=== PATIENT | male | born 1975 | race Caucasian/White ===

== ENCOUNTER 2016-11-24 21:07 | Emergency (ER) | payer MEDICARE, MEDICAID ==
[2016-11-24 21:27] VITALS: BP 0/0
--- OUTSIDE RECORDS SUMMARY | 2016-11-26 17:34 | XMS REPORT ---
Author Author MEERA CARRILLO [facility] eClinicalWorks Address Unknown Phone Unavailable Care Team Providers Care Travel Physical Therapist Name Role Phone MEERA CARRILLO CP Unavailable Allergies No Known Allergies Problems Problem Type Condition Code Onset Dates Condition Status Assessment Dental examination Z01.20 Active Problem Encounter for dental examination Z01.20 Active Medications No Known Medications Procedures Procedure Coding System Code Date Dental no charge CPT-4 D0099 September 27, 2015 Results No Known Results Summary Purpose eClinicalWorks Submission
--- OUTSIDE RECORDS SUMMARY | 2016-11-26 17:34 | XMS REPORT | Continuity of Care Document ---
Author Author [facility] Organization [facility] Address Unknown Phone Unavailable Allergies Medications Problems Date Dx Coded Attending Type Code Diagnosis Diagnosed By 11/12/2014 FLACO ALONZO DO Ot 603.9 12/16/2014 FLACO ALONZO DO Ot 603.9 12/16/2014 FLACO ALONZO DO Ot 603.9 01/04/2015 FLACO ALONZO DO Ot 603.9 10/29/2015 ELAINA GOMEZ MD Ot N23 UNSPECIFIED RENAL COLIC 10/30/2015 ELAINA GOMEZ MD Ot N23 UNSPECIFIED RENAL COLIC Procedures Results Encounters ACCT No. Visit Date/Time Discharge Status Pt. Type Provider Facility Loc./Unit Complaint [id number] 10/29/2015 17:24:00 2015 18:46:00 DIS Emergency ELAINA GOMEZ MD [facility] ER [id number] 10/14/2014 09:18:00 2014 23:59:59 CLS Outpatient FLACO ALONZO DO [facility] RAD
--- OUTSIDE RECORDS SUMMARY | 2016-11-26 17:34 | XMS REPORT ---
Author Author MELIA SIERRA Organization [employer] Address Unknown Phone Unavailable Care Team Providers Care Highway Design Engineer Name Role Phone MELIA SIERRA CP Unavailable Allergies, Adverse Reactions, Alerts Substance Reaction Event Type Penicillin V Potassium Info Not Available Drug Allergy Problems Problem Type Condition Code Onset Dates Condition Status Assessment Encounter for dental examination and cleaning with abnormal findings Z01.21 Active Problem Encounter for dental examination Z01.20 Active Medications No Known Medications Procedures Procedure Coding System Code Date TOPICAL FLUORIDE VARNISH CPT-4 D1206 September 27, 2015 PROPHYLAXIS - ADULT CPT-4 D1110 September 27, 2015 Results No Known Results Summary Purpose eClinicalWorks Submission
--- OUTSIDE RECORDS SUMMARY | 2016-11-26 17:34 | XMS REPORT ---
Author Author BRET CAVAZOS [employer] Address Unknown Phone Unavailable Care Team Providers Care Boat Pilot Name Role Phone BRET CAVAZOS CP Unavailable Allergies, Adverse Reactions, Alerts Substance Reaction Event Type Penicillin V Potassium Info Not Available Drug Allergy Problems Problem Type Condition Code Onset Dates Condition Status Assessment Encounter for dental examination Z01.20 Active Problem Encounter for dental examination Z01.20 Active Medications Medication Code System Code Instructions Start Date End Date Status Dosage Zetia [facility] [address]-47 10 MG Orally Once a day 1 tablet Loratadine [facility] [address]-85 10 MG Orally Once a day 1 tablet Vitamin E [facility] [address]-12 1000 UNIT Orally Once a day 1 capsule ProAir HFA [facility] [address]-00 108 (90 Base) MCG/ACT Inhalation every 4 hrs 2 puffs as needed Furosemide [facility] [address]-41 40 MG Orally Once a day 1 tablet Potassium Chloride ER [facility] [address]-61 20 MEQ Orally Twice a day 1 tablet with food Nasonex [facility] [address]-82 50 MCG/ACT Nasally Once a day 2 sprays in each nostril Patanol [facility] [address]-95 0.1 % Ophthalmic Twice a day 1 drop into affected eye Vitamin C [facility] [address]01 500 MG Orally not defined Zafirlukast [facility] [address]-74 20 MG Orally Twice a day 1 tablet Digoxin [facility] [address]-12 125 MCG Orally Once a day 1 tablet Procedures Procedure Coding System Code Date PROPHYLAXIS - ADULT CPT-4 D1110 Jun 10, 2015 TOPICAL FLUORIDE VARNISH CPT-4 D1206 Jun 10, 2015 BITEWINGS - FOUR FILMS CPT-4 D0274 Jun 10, 2015 Vital Signs Date/Time: Jun 10, 2015 Blood Pressure Diastolic 73 mmHg Blood Pressure Systolic 122 mmHg Cardiac Monitoring Heart Rate 79 bpm Results No Known Results Summary Purpose eClinicalWorks Submission
--- OUTSIDE RECORDS SUMMARY | 2016-11-26 17:34 | XMS REPORT ---
Author Author BRET CAVAZOS [employer] Address Unknown Phone Unavailable Care Team Providers Care Lasting Room Machine Operator Name Role Phone BRET CAVAZOS CP Unavailable Allergies, Adverse Reactions, Alerts Substance Reaction Event Type Penicillin V Potassium Info Not Available Drug Allergy Problems Problem Type Condition Code Onset Dates Condition Status Assessment Encounter for dental examination Z01.20 Active Problem Encounter for dental examination Z01.20 Active Medications Medication Code System Code Instructions Start Date End Date Status Dosage Nasonex [facility] [place] [address]-62 50 MCG/ACT Nasally Once a day 2 sprays in each nostril Vitamin E [facility] [place] [facility]] [address]-72 1000 UNIT Orally Once a day 1 capsule Zetia [facility] [place]] [address]-18 10 MG Orally Once a day 1 tablet Flovent HFA [facility] [place] [facility] [address]-42 110 MCG/ACT Inhalation Twice a day 1 puff Loratadine [facility] [place] 2[place] [address]-08 10 MG Orally Once a day 1 tablet Vitamin C [facility] [place] 2] [address]65 500 MG Orally not defined Digoxin [facility] [place] 2] [address]-35 125 MCG Orally Once a day 1 tablet Furosemide [facility] [place] 2] [address]-11 40 MG Orally Once a day 1 tablet Zafirlukast [facility] [place] 2] [address]-95 20 MG Orally Twice a day 1 tablet Promethazine-Codeine [facility] [place] 2] [address]-44 6.25-10 MG/5ML Orally every 6 hrs 5 ml as needed Benzonatate [facility] [place]] [address]-31 200 MG Orally Three times a day 1 capsule as needed Potassium Chloride ER [facility] [place] 2] [address]-39 20 MEQ Orally Twice a day 1 tablet with food Patanol [facility] [place] 2] [address]-02 0.1 % Ophthalmic Twice a day 1 drop into affected eye ProAir HFA [facility] [place] 2[facility] [address]-41 108 (90 Base) MCG/ACT Inhalation every 4 hrs 2 puffs as needed Acetaminophen [facility] [place] 2] [address]-78 not defined Procedures Procedure Coding System Code Date PROPHYLAXIS - ADULT CPT-4 D1110 December 28, 2015 TOPICAL FLUORIDE VARNISH CPT-4 D1206 December 28, 2015 INTRAORL-PERIAPICAL 1 FILM 04989 CPT-4 D0220 December 28, 2015 Vital Signs Date/Time: December 28, 2015 Blood Pressure Diastolic 68 mmHg Blood Pressure Systolic 119 mmHg Cardiac Monitoring Heart Rate 81 bpm Results No Known Results Summary Purpose eClinicalWorks Submission
--- OUTSIDE RECORDS SUMMARY | 2016-11-26 17:34 | XMS REPORT ---
Author Author ADAMA GUARDADO [employer] Address Unknown Phone Unavailable Care Team Providers Care Knowledge Architect Name Role Phone ADAMA GUARDADO CP Unavailable Allergies, Adverse Reactions, Alerts Substance Reaction Event Type Penicillin V Potassium Info Not Available Drug Allergy Problems Problem Type Condition Code Onset Dates Condition Status Assessment Dental examination Z01.20 Active Problem Encounter for dental examination Z01.20 Active Medications Medication Code System Code Instructions Start Date End Date Status Dosage Loratadine [facility] [address]-40 10 MG Orally Once a day 1 tablet Acetaminophen [facility] [address]-14 not defined ProAir HFA [facility] [address]-18 108 (90 Base) MCG/ACT Inhalation every 4 hrs 2 puffs as needed Zafirlukast [facility] [address]-10 20 MG Orally Twice a day 1 tablet Potassium Chloride ER [facility] [address]-99 20 MEQ Orally Twice a day 1 tablet with food Vitamin C [facility] [address]35 500 MG Orally not defined Clindamycin HCl [facility] [address]-65 150 MG Orally Take 4 capsules at one time , one hour before next appointment Jun 28, 2015 Jun 28, 2015 4 capsules Patanol [facility] [address]-96 0.1 % Ophthalmic Twice a day 1 drop into affected eye Vitamin E [facility] [address]-83 1000 UNIT Orally Once a day 1 capsule [address]et[address] [facility] [address]-36 10 MG Orally Once a day 1 tablet Digoxin [facility] [address]-41 125 MCG Orally Once a day 1 tablet Furosemide [facility] [address]-04 40 MG Orally Once a day 1 tablet Nasonex [facility] [address]-14 50 MCG/ACT Nasally Once a day 2 sprays in each nostril Procedures Procedure Coding System Code Date COMP ORAL EVALUATION - NEW/EST PT CPT-4 D0150 Jun 28, 2015 Vital Signs Date/Time: Jun 28, 2015 Blood Pressure Diastolic 82 mmHg Blood Pressure Systolic 123 mmHg Results No Known Results Summary Purpose eClinicalWorks Submission
== END 2016-11-24 21:26 | disposition left against medical advice (07) ==
LOC: EDUNIT# 21:07 → ER 21:10
DX: S01.311A Laceration without foreign body of right ear, initial encounter (principal); W26.9XXA Contact with unspecified sharp object(s), initial encounter; Z53.21 Procedure and treatment not carried out due to patient leaving prior to being seen by health care provider
CPT/HCPCS: 99281

== ENCOUNTER → 2018-05-01 | Outpatient (CLI) | payer MEDICARE, MEDICAID ==
--- NOTE | 2018-05-01 13:32 | Diagnostic Imaging Report ---
PA and lateral chest at 11:09 The cardiomegaly noted on the prior exam of 10/13/2016 is again evident and no different. The perihilar markings are prominent bilaterally and similar to the previous study. There is no evidence for failure, pneumonia or for pleural effusion. Mediastinum is not widened. The osseous structures are intact. Impression: There is cardiomegaly but there is no evidence for an acute cardiopulmonary abnormality. Dictated by: Dictated on workstation # [id number]
== END ==
LOC: RAD 10:29
PROVIDERS: ATTEND Family Medicine
DX: I51.7 Cardiomegaly (principal); R06.02 Shortness of breath
CPT/HCPCS: 71046

== ENCOUNTER 2021-12-22 01:38 | Emergency (ER) | payer MEDICARE, MEDICAID ==
[~2021-12-22] VITALS: Ht 172 cm; Wt 95.0 kg
--- NOTE | 2021-12-22 01:50 | ED General ---
General Stated Complaint: COVID+ History of Present Illness Date Seen by Provider: Dec 22, 2021 Time Seen by Provider: 01:50 Initial Comments 46-year-old male with PMH of intellectual disability/HTN, is brought in by his accounting advisory services manager with complaints of chest congestion, nasal congestion, cough due to COVID. Patient was diagnosed with COVID 3 days ago. Patient is also started on doxycycline as per his paperwork from the facility. Denies chest pain, palpitations, abdominal pain, diarrhea, fever, chills. Allergies and Home Medications Allergies Coded Allergies: No Known Drug Allergies (Unverified , 12/22/21) Patient Home Medication List Home Medication List Reviewed: Yes Albuterol Sulfate (Proair Hfa) 90 Mcg Hfa.aer.ad, (Reported) Entered as Reported by: SUMMER RODRIGUEZ on 12/22/21154 Last Action: New Order Ascorbic Acid (Ascorbic Acid) 500 Mg Tablet, (Reported) Entered as Reported by: SUMMER RODRIGUEZ on 12/22/21154 Last Action: New Order Budesonide/Formoterol Fumarate (Symbicort 160-4.5 Mcg Inhaler) 160 Mcg-4.5 Mcg/Actuation Hfa.aer.ad, (Reported) Entered as Reported by: SUMMER RODRIGUEZ on 12/22/21154 Last Action: New Order Clindamycin HCl (Clindamycin HCl) 300 Mg Capsule, (Reported) Entered as Reported by: SUMMER RODRIGUEZ on 12/22/21154 Last Action: New Order Digoxin (Digoxin) 125 Mcg (0.125 Mg) Tablet, (Reported) Entered as Reported by: SUMMER RODRIGUEZ on 12/22/21154 Last Action: New Order Doxycycline Hyclate (Doxycycline Hyclate) 100 Mg Capsule, (Reported) Entered as Reported by: SUMMER RODRIGUEZ on 12/22/21154 Last Action: New Order Furosemide (Furosemide) 40 Mg Tablet, (Reported) Entered as Reported by: SUMMER RODRIGUEZ on 12/22/21154 Last Action: New Order Furosemide (Lasix) 40 Mg Tablet, (Reported) Entered as Reported by: SUMMER RODRIGUEZ on 12/22/21154 Last Action: New Order Guaifenesin/Dextromethorphan (Robitussin Cough-Chest Dm Liq) 100 Mg-5 Mg/5 Ml Liquid, (Reported) Entered as Reported by: SUMMER RODRIGUEZ on 12/22/21154 Last Action: New Order Ibuprofen (Ibuprofen) 200 Mg Capsule, (Reported) Entered as Reported by: SUMMER RODRIGUEZ on 12/22/21154 Last Action: New Order Ipratropium/Albuterol Sulfate (Iprat-Albut 0.5-3(2.5) mg/3 ml) 0.5 Mg-3 Mg (2.5 Mg Base)/3 Ml Ampul.neb, (Reported) Entered as Reported by: SUMMER RODRIGUEZ on 12/22/21154 Last Action: New Order Loratadine (Loratadine) 10 Mg Tablet, (Reported) Entered as Reported by: SUMMER RODRIGUEZ on 12/22/21154 Last Action: New Order Potassium Chloride (Potassium Chloride) 20 Meq Tablet.er, (Reported) Entered as Reported by: SUMMER RODRIGUEZ on 12/22/21154 Last Action: New Order Zafirlukast (Zafirlukast) 20 Mg Tablet, (Reported) Entered as Reported by: SUMMER RODRIGUEZ on 12/22/21154 Last Action: New Order Review of Systems Review of Systems Constitutional: no symptoms reported EENTM: no symptoms reported, nose congestion Respiratory: cough Cardiovascular: no symptoms reported Gastrointestinal: no symptoms reported Genitourinary: no symptoms reported Musculoskeletal: no symptoms reported Skin: no symptoms reported Psychiatric/Neurological: No Symptoms Reported Hematologic/Lymphatic: No Symptoms Reported Immunological/Allergic: no symptoms reported Past Wvmdeuz-Hknoaa-Nujroa Hx Seasonal Allergies Seasonal Allergies: Yes Past Medical History Asthma Heart Murmur, High Cholesterol, Hypertension Physical Exam Vital Signs Vital Signs - First Documented 12/22/21 01:46 Temp 36.4 Pulse 108 Resp 18 B/P (MAP) 142/83 (102) Pulse Ox 98 O2 Delivery Room Air Capillary Refill : Height, Weight, BMI Height: 5'8" Weight: 210lbs. oz. 95.248573ia; BMI Method:Stated General Appearance: No Apparent Distress HEENT: PERRL/EOMI, TMs Normal, Normal ENT Inspection Neck: Full Range of Motion, Normal Inspection, Non Tender, Supple Respiratory: Chest Non Tender, No Accessory Muscle Use, Rhonci, Wheezing Cardiovascular: Regular Rate, Rhythm, No Edema Gastrointestinal: Normal Bowel Sounds, Non Tender, Soft Back: Normal Inspection, No CVA Tenderness, No Vertebral Tenderness Extremity: Normal Range of Motion Neurologic/Psychiatric: Alert, Oriented x3, No Motor/Sensory Deficits Skin: Normal Color Progress/Results/Core Measures Suspected Sepsis SIRS Temperature: Pulse: Respiratory Rate: Blood Pressure / Mean: Results/Orders My Orders Orders - RIKA COTE MD Monitor-Rhythm Ecg Trace Only (12/22/21 02:02) Ed Iv/Invasive Line Start (12/22/21 02:02) Albuterol Inhaler (Albuterol) (12/22/21 02:15) Benzonatate Capsule (Tessalon Perles) (12/22/21 02:09) Guaifenesin Tablet (Mucinex Tablet) (12/22/21 02:15) Methylprednisolone Sod Succ (Solu-Medrol (12/22/21 02:30) Albuterol/Ipra Inhalation Soln (Duoneb I (12/22/21 03:45) Svn Small Volume Nebulizer (12/22/21 03:37) Medications Given in ED Current Medications Medications Dose Ordered Sig/Bryant Route Start Time Stop Time Status Last Admin Dose Admin Albuterol Sulfate 3 PUFFS ONCE PRN IH 12/22/21 02:15 12/22/21 02:41 8.5 GM Guaifenesin 600 mg ONCE ONCE PO 12/22/21 02:15 12/22/21 02:16 DC 12/22/21 02:41 600 MG Methylprednisolone Sodium Succinate 125 mg ONCE ONCE IM 12/22/21 02:30 12/22/21 02:31 DC 12/22/21 02:41 125 MG Vital Signs/I&O 12/22/21 01:46 Temp 36.4 Pulse 108 Resp 18 B/P (MAP) 142/83 (102) Pulse Ox 98 O2 Delivery Room Air Capillary Refill : Progress Note : Progress Note 1. COVID SYMPTOMS: - Albuterol inhaler was given first without much improvement. Then gave 2 rounds of Duo Neb - Solumedrol 125mg im/ Tessalon Perles/ Mucinex given in ER - Paxlovid declined by pt's facility nurse, and she stated it would cross react with the the patients other medications. - Follow up with PCP in 3 to 7 days -The patient was seen in the ED, and treated appropriately to presentation at a specific point in time. Patient is informed that there is a possibility that disease and illness can evolve and change in acuity rapidly or slowly after patient is discharged from the ER. Precautionary advice given to the patient for immediate return to ER if symptoms worsen or do not resolve, and to seek emergency care sooner rather than later. Pt also advised on the importance of PCP follow up and compliance with management and follow up plan with PCP and/or specialist, as this is part of the management plan. Pt verbally expressed understanding. Departure Impression Primary Impression: COVID-19 Disposition: 01 HOME, SELF-CARE Condition: Improved Departure-Patient Inst. Referrals: CARLOS SPIVEY MD (PCP/Family) Primary Care Physician Patient Instructions: COVID-19 Home Care/Discharge, COVID-19 ED Add. Discharge Instructions: Prescription for Tessalon Perle/ Prednisone Advised Vitamin C and Zinc - Follow up with PCP in 3 to 5 days - Return to ER if worsening symptoms. -The patient was seen in the ED, and treated appropriately to presentation at a specific point in time. Patient is informed that there is a possibility that disease and illness can evolve and change in acuity rapidly or slowly after patient is discharged from the ER. Precautionary advice given to the patient for immediate return to ER if symptoms worsen or do not resolve, and to seek emergency care sooner rather than later. Pt also advised on the importance of PCP follow up and compliance with management and follow up plan with PCP and/or specialist, as this is part of the management plan. Pt verbally expressed understanding. Scripts Benzonatate (TESSALON PERLES) 100 Mg Capsule 100 MG PO TID PRN for COUGH for 5 Days, #15 CAP Prov: RIKA COTE MD 12/22/21 Prednisone (Prednisone) 20 Mg Tab 40 MG PO DAILY for 5 Days, TAB Prov: RIKA COTE MD 12/22/21 RIKA COTE MD Dec 22, 2021 01:50
[2021-12-22] MEDS ORDERED: DIGO125T3 (01:55)
[2021-12-22] MEDS ORDERED: FURO-124 (01:55)
[2021-12-22] MEDS ORDERED: ALBU8.5H9 (01:55)
[2021-12-22] MEDS ORDERED: IPRA3AMP31 (01:55)
[2021-12-22] MEDS ORDERED: GUAI237L82 (01:55)
[2021-12-22] MEDS ORDERED: LORA10TA7 (01:55)
[2021-12-22] MEDS ORDERED: CLIN-144 (01:55)
[2021-12-22] MEDS ORDERED: ASCO500T7 (01:55)
[2021-12-22] MEDS ORDERED: ZFR20T (01:55)
[2021-12-22] MEDS ORDERED: IBUP-2185 (01:55)
[2021-12-22] MEDS ORDERED: FURO40TA4 (01:55)
[2021-12-22] MEDS ORDERED: BUDE10.2 (01:55)
[2021-12-22] MEDS ORDERED: POTA-51 (01:55)
[2021-12-22] MEDS ORDERED: DOXY100C5 (01:55)
[2021-12-22] MEDS ORDERED: methylPREDNISolone 125 MG (Solu-MEDROL) VIAL IV STA (02:02)
[2021-12-22] MEDS ORDERED: BENZONATATE 100 MG (TESSALON) CAPSULE PO STA (02:09)
[2021-12-22] MEDS ORDERED: guaiFENesin (MUCINEX) 600 MG TAB PO ONE (02:15)
[2021-12-22] MEDS ORDERED: RT-ALBUTEROL HFA 8.5 GM INHALER IH PRN (02:15)
[2021-12-22] MEDS ORDERED: methylPREDNISolone 125 MG (Solu-MEDROL) VIAL IM ONE (02:30)
[2021-12-22] MEDS ORDERED: RT-ALBUTEROL/IPRATROPIUM 3 ML (DUONEB) VIAL INH ONE (03:45)
[2021-12-22] MEDS ORDERED: BENZ100C18 PO (05:19)
[2021-12-22] MEDS ORDERED: PRD20T PO (05:19)
[2021-12-22 05:37] VITALS: BP 135/78
== END 2021-12-22 05:39 | disposition home or self-care (01) ==
LOC: EDUNIT# 01:38 → ER 01:41
DX: U07.1 COVID-19 (principal); Z73.0 Burn-out
CPT/HCPCS: 99284

== ENCOUNTER → 2021-12-27 | Outpatient (CLI) | payer MEDICARE, MEDICAID ==
[~2021-12-27] MED LIST: ALBU8.5H9; ASCO500T7; BENZ100C18 PO; BUDE10.2; CLIN-144; DIGO125T3; DOXY100C5; FURO-124; FURO40TA4; GUAI237L82; IBUP-2185; IPRA3AMP31; LORA10TA7; POTA-51; PRD20T PO; ZFR20T
--- NOTE | 2021-12-27 14:38 | Diagnostic Imaging Report ---
INDICATION: Status post Covid. Cough and congestion. EXAMINATION: Two view chest on 12/27/2021. COMPARISON: 05/01/2018. FINDINGS: The heart is prominent. The pulmonary vasculature is unremarkable. The lungs and pleural spaces are clear. No infiltrates, effusions, or pneumothorax. IMPRESSION: Cardiomegaly with no acute cardiopulmonary process otherwise noted. Dictated by: Dictated on workstation # [id number]
== END ==
LOC: RAD 10:55
PROVIDERS: ATTEND Nurse Practitioner Family
DX: I51.7 Cardiomegaly (principal); Z86.16 Personal history of COVID-19
CPT/HCPCS: 71046